=== PATIENT | female | born 1955 | race Caucasian/White ===

== ENCOUNTER 2019-09-01 06:50 | Day surgery (SDC) | payer BC ==
--- NOTE | 2019-08-24 16:00 | HP ---
CC: Dr. Marga Wade; Dr. Echo Elizondo * PREOPERATIVE HISTORY AND PHYSICAL: DATE OF ADMISSION/SURGERY: 09/01/19 - [facility] This patient is scheduled for same-day surgery admission by Dr. Wade on Wednesday , 09/01/19. DATE OF PREOPERATIVE HISTORY AND PHYSICAL EXAMINATION: , 08/24/19. ATTENDING SURGEON: Dr. Marga Wade * (dictated by Aretha Pacheco NP). CHIEF COMPLAINT: Atypical ductal papillomatosis, left breast. HISTORY OF PRESENT ILLNESS: The patient is a 64-year-old female who had a stress test in a spring that was reportedly normal, but which showed an incidental finding in the left breast. This prompted imaging that demonstrated a nodule in the left breast. A left breast ultrasound was done to attempt biopsy, but the ultrasound found that the nodule was the same as the nodule biopsied in 2007, so the ultrasound-guided left breast biopsy was cancelled. She then underwent an MRI of the breast and a large area of non-mass enhancement in the left breast was identified with washout kinetics suspicious for malignancy and additional satellite lesions, so MR biopsy of the left breast was done and showed atypical ductal papillomatosis and excision has been advised. Additionally, there was a 6 mm nodule in the right breast with suspicious kinetics and that was also biopsied and showed atypical lobular hyperplasia with benign breast tissue including the usual ductal hyperplasia, so no further treatment other than followup has been advised for that. The patient has been unaware of any breast changes, she denies nipple discharge. She has never had radiation to the chest; she has undergone biopsies of the left breast in the past. She has a family history of breast cancer in a maternal aunt who had it diagnosed at age 76, and a family history of ovarian cancer in a different maternal aunt who had it diagnosed in her 70s. The patient herself was on control pills from age 17 to age 29 and then on medroxyprogesterone for about a year. She was age 10 or 11 when she had her first menstrual period, 34 with the of her first child, and does not recall when she went through menopause other than it was an early menopause. Dr. Wade has examined the patient and reviewed the above findings with her and has recommended needle localization excision of the left breast imaging abnormality and described the nature of the surgical procedure, the rationale for the procedure, the relevant risks and benefits, and today, I reviewed the typical postoperative care and recovery. The patient has had a chance to ask questions and stated that she understands the information and is satisfied with the answers given to her questions. She will sign surgical consent on the day of surgery. PAST MEDICAL HISTORY: Significant for insulin-dependent diabetes, hypertension , morbid obesity, osteoarthritis, depression, thyroid cancer, and macular degeneration resulting in significantly diminished vision. PAST SURGICAL HISTORY: Ductogram of the left breast many years ago by Dr. Wade, section, completion thyroidectomy for malignancy at [facility], right ankle surgery for fracture, bilateral cataract extraction, D and C. MEDICATIONS: 1. Aspirin 81 mg p.o. daily, which she will hold for 5 days preoperatively. 2. Calcitriol 0.5 mcg 1 tablet 3 times a day. 3. Levothyroxine 200 mcg 1 tablet daily. 4. Pentasa 500 mg 1 tablet by mouth b.i.d. 5. NovoLog FlexPen 100 units per mL sliding scale as directed. 6. Omeprazole 20 mg p.o. daily. 7. Lantus 100 units per mL 72 units daily at bedtime. 8. Furosemide 40 mg 1-1/2 tablets by mouth daily. 9. Sertraline 25 mg by mouth daily. 10. Victoza 18 mg/3 mL 1.8 mL daily in the morning. 11. Ramipril 10 mg p.o. daily. 12. Simvastatin 20 mg p.o. daily. ALLERGIES: CYTOTEC caused severe diarrhea. FAMILY HISTORY: No known anesthesia complications, bleeding tendencies, or clotting disorders. Maternal aunt diagnosed with breast cancer at age 76 and a different maternal aunt diagnosed with ovarian cancer in her 70s. SOCIAL HISTORY: She is . She quit smoking 18 years ago. She does not drink alcohol or use other substances. She does drink diet coke. REVIEW OF SYSTEMS: General: No previous anesthesia complications. No history of deep vein thrombosis or pulmonary embolism, although she does have venous stasis of both lower extremities. No bleeding tendencies or blood transfusions. Constitutional: No fevers or chills or excessive fatigue. Endocrine: Insulin-dependent diabetes. Fingersticks at home are usually less than 130. Recent hemoglobin A1c is 7.1, down from 7.6. She is status post total thyroidectomy. Breasts: As described in history of present illness. Respiratory: No dyspnea on exertion. No chronic cough. Cardiovascular: No anginal chest pain or palpitations or history of myocardial infarction. Gastrointestinal: No nausea, vomiting, diarrhea, GI bleeding, or chronic constipation. Genitourinary: No dysuria. Musculoskeletal: Osteoarthritis in most joints. Integumentary: Venous stasis of both lower extremities with associated skin changes, but no open ulcerations. Neurologic: No headache or blurred vision. She does experience some numbness in her fingertips. Her gait is steady. Psychiatric: No reported anxiety or insomnia. She is on an antidepressant. PHYSICAL EXAMINATION GENERAL SURVEY: The patient is a 64-year-old morbidly obese female, in no acute distress. VITAL SIGNS: Height 61.25 inches, weight 306 pounds, body mass index 57.3. Blood pressure 130/76, pulse 72 and regular, respiratory rate 16, temperature 97 tympanic. HEENT: Benign. NECK: Supple. Well-healed surgical scar anterior neck. No cervical lymphadenopathy. She also has a fabiana on the anterior neck in the supraclavicular region on the left. LUNGS: Breath sounds bilaterally clear and equal. HEART: Regular rate and rhythm. No murmurs or rubs appreciated. BREASTS: Appear slightly asymmetric. There is some visible scarring around the nipple in the right breast and the left breast is a little smaller than the right. Both nipples are flat. There is no cervical, supraclavicular, or axillary adenopathy. Palpation of the right breast reveals no discrete masses. Palpation of the left breast reveals some nodularity in the region of the biopsy site; the biopsy site is clean and dry without evidence of infection. There is no ecchymosis. ABDOMEN: Obese, soft, nondistended, and nontender. Exam is limited by body habitus, but no obvious masses. PELVIC: Exam deferred. RECTAL: Exam deferred. EXTREMITIES: Warm. Both lower extremities over the pretibial region have changes of venous stasis, but no open ulcerations. NEUROLOGIC: Alert and oriented x3. Steady gait. SKIN: Warm and dry; both lower extremities over the pretibial regions with changes of venous stasis, but no open ulcerations. IMPRESSION: Left breast imaging abnormality with associated biopsy showing atypical ductal papillomatosis. PLAN: Same-day surgery admission to Dr. Wade's service on 09/01/19, for needle localization excision of left breast imaging abnormality. BLANCA PACHECO, LIFE AGENT [id number]/[facility] #: [id number] [facility]
[~2019-09-01 06:50] MED LIST: Buffered Lidocaine 1% SYRIN* 1 ML/SYRINGE INTRADERM ONE; Lactated Ringers 1000 ML Bag* 1,000 ML IV SCH
[2019-09-01] MEDS ORDERED: Lidocaine 2.5%/Prilocain 2.5%* 5 GM TUBE ONE (07:09)
[2019-09-01 07:53] LABS: BUN/Creatinine Ratio 30.1 (8-20); Calcium 8.8 mg/dL (8.6-10.3); EGFR African American 73.2 (>60); EGFR Non-African American 60.5 (>60); Potassium 4.4 mmol/L (3.5-5.0)
[2019-09-01] MEDS ORDERED: Heparin VIAL(*) 5000 UNITS/ML VIAL (FIVE THOUSAND) ONE (09:57)
[2019-09-01] MEDS ORDERED: ceFAZolin 2 GM PREMIX in ORs 2 GM/50 ML BAG ONE (09:57)
[2019-09-01] MEDS ORDERED: ceFAZolin 1 GM ADVAN(*) 1 GM ADDV.VIAL IVPB ONE (09:57)
[2019-09-01] MEDS ORDERED: Lidocaine 1% INJ* 10 MG/ML 30 ML SDV ONE (11:49)
[2019-09-01] MEDS ORDERED: Bupivacaine 0.25% EPI 200,000* 30 ML SDV ONE (11:50)
[2019-09-01] MEDS ORDERED: Bupivacaine 0.5%* 50 ML MDV VIAL ONE (11:50)
[2019-09-01] MEDS ORDERED: fentaNYL* 50 MCG/ML 2 ML VIAL (100 MCG VIAL) ONE (12:07)
[2019-09-01] MEDS ORDERED: Ondansetron INJ* 2 MG/ML VIAL ONE (12:07)
[2019-09-01] MEDS ORDERED: Dexamethasone IV* 4 MG/ML 1 ML (4 MG) ONE (12:07)
[2019-09-01] MEDS ORDERED: Ketorolac INJ* 30 MG/ML 1 ML VIAL ONE (12:07)
[2019-09-01] MEDS ORDERED: Midazolam* 1 MG/ML 2 ML VIAL (2 MG) ONE (12:07)
[2019-09-01] MEDS ORDERED: Propofol* 10 MG/ML 20 ML BTL ONE (12:07)
[2019-09-01] MEDS ORDERED: Metoclopramide IV* 5 MG/ML 2 ML VIAL ONE (12:07)
[2019-09-01] MEDS ORDERED: Acetaminophen TAB* 325 MG PO PRN (12:53)
[2019-09-01] MEDS ORDERED: Naloxone* 0.4 MG/ML 1 ML VIAL IV PRN (12:53)
--- NOTE | 2019-09-01 13:40 | BRIEFOPN ---
Brief Operative/Procedure Note - Operation Details Pre-Op Diagnosis: Left breast imaging abnormality Post-Op Diagnosis: Left breast imaging abnormality Procedures: Needle localization excision of left breast imaging abnormality Surgeon(s)/Proceduralists: Dr. Wade. Assist: Trace Luther Anesthesia: MAC Estimated Blood Loss: <50cc Findings: As above Specimen(s)/Culture(s) Description: Left breast tissue Complications: None
[2019-09-01 14:07] VITALS: BP 131/80
--- NOTE | 2019-09-01 20:17 | OP ---
CC: Dr. Echo Elizondo * DATE OF OPERATION: 09/01/19 - SDS DATE OF : 53 SURGEON: Dr. Wade. ASSISTANTS: ISIAH Luther and ISIAH Yu student. PRE-OP DIAGNOSIS: Left breast mammographic abnormality. POST-OP DIAGNOSIS: Left breast mammographic abnormality. OPERATIVE PROCEDURE: Needle localization excision of left breast mammographic abnormality. INDICATIONS: Ms. Ry Schofield is a 64-year-old woman, recently diagnosed with a mammographic abnormality that prompted the plan for surgical intervention. DESCRIPTION OF PROCEDURE: On the morning of surgery, she underwent needle localization without difficulty. She was then brought to the operating room. She was placed on the OR table in supine position and given IV sedation. The left breast was prepped and draped in usual sterile fashion, taking care not to dislodge the localizing wire. Then, a curvilinear elliptical incision encompassing the wire was made after infiltrating the skin with local anesthetic. Subcutaneous tissue was then divided with electrocautery to excise a mass of tissue from around the wire. This was then marked in the usual fashion and handed off as a specimen. The wound was inspected for hemostasis, which was achieved with electrocautery. The report eventually came back from Radiology that the specimen contained the abnormality and once hemostasis was achieved, closure was accomplished. This was done with 3-0 Vicryl in the subcutaneous layer and the skin was closed with 4-0 Prolene in the subcuticular fashion. Prior to closing, clips were placed in the cavity to fabiana its confines and additional local was instilled into the cavity. Steri-Strips and a dry sterile dressing were applied. All sponge and instrument counts were correct. The patient tolerated the procedure well and was transferred to Recovery in a stable condition. [id number]/[facility] #[facility] [id number] [facility]
== END 2019-09-01 14:47 | disposition home or self-care (01) ==
LOC: SDS 06:50
PROVIDERS: ATTEND Surgery
DX: D05.12 Intraductal carcinoma in situ of left breast (principal); E11.9 Type 2 diabetes mellitus without complications; Z79.4 Long term (current) use of insulin; I10 Essential (primary) hypertension; M19.90 Unspecified osteoarthritis, unspecified site; E66.01 Morbid (severe) obesity due to excess calories; Z68.43 Body mass index [BMI] 50.0-59.9, adult; Z87.891 Personal history of nicotine dependence; Z85.850 Personal history of malignant neoplasm of thyroid
CPT/HCPCS: 36415; 80048; 88307; 88360; A9270-GY; J0690; J1100; J1644; J1885; J2250; J2405; J2704; J2765; J3010; J3490

== ENCOUNTER 2020-02-29 17:49 | Inpatient (IN) ==
[2020-02-29 19:21] LABS: ABS Eosinophils 0.3 10^3/ul (0-0.6); ABS Monocytes 0.9 10^3/ul (0-0.8); ABS Neutrophils 7.3 10^3/ul (1.5-7.7); Eosinophil % 2.8 %; Hematocrit 34 % (35-47); Hemoglobin 11.7 g/dL (12.0-16.0); Mean Corpuscular HGB Conc 35 g/dL (31-36); Mean Corpuscular Hemoglobin 32 pg (27-31); Mean Corpuscular Volume 92 fL (80-97); Mean Platelet Volume 7.7 fL (7.4-10.4); Platelet Count 217 10^3/uL (150-450); Red Blood Count 3.71 10^6 /uL (3.70-4.87); Red Cell Distribution Width 14 % (10-15); White Blood Count 10.5 10^3/uL (3.5-10.8)
[2020-02-29 19:30] LABS: Activated Partial Thrombo Time 30.8 seconds (26.0-38.0)
[2020-02-29 19:41] LABS: ALT 11 U/L (7-52); AST 13 U/L (13-39); Albumin 3.2 g/dL (3.2-5.2); Alkaline Phosphatase 50 U/L (34-104); Anion Gap 6 mmol/L (2-11); BUN/Creatinine Ratio 20.9 (8-20); Blood Urea Nitrogen 19 mg/dL (6-24); C Reactive Protein 17.72 mg/L (<8.01); CO2 Carbon Dioxide 36 mmol/L (22-32); Calcium 8.9 mg/dL (8.6-10.3); Chloride 98 mmol/L (101-111); Creatine Kinase 66 U/L (10-223); EGFR African American 74.8 (>60); EGFR Non-African American 61.9 (>60); Globulin 3.3 g/dL (2-4); Glucose 159 mg/dL (70-100); Sodium 140 mmol/L (135-145); Total Protein 6.5 g/dL (6.4-8.9)
[2020-02-29 19:48] LABS: CKMB ng/mL 2.5 ng/mL (0.6-6.3); Troponin I 0.05 ng/mL (<0.03)
[2020-02-29] MEDS ORDERED: Iodixanol (CONTRAST) 320 MG/ML 100 ML SDV IV ONE (20:02)
[2020-02-29 21:46] LABS: Urine Appearance Clear; Urine Bilirubin Negative (Negative); Urine Blood Negative (Negative); Urine Color Yellow; Urine Glucose Negative (Negative); Urine Ketones Negative (Negative); Urine Nitrite Negative (Negative); Urine Protein Negative (Negative); Urine Specific Gravity 1.045 (1.010-1.030); Urine Urobilinogen Negative (Negative)
[2020-02-29] MEDS ORDERED: Furosemide 40 mg/4 ml IV VIAL IV SLOW PU ONE (22:20)
[2020-02-29] MEDS: Enoxaparin 40 MG/0.4 ML SYR SUBCUT SCH (23:24)
[2020-02-29 23:37] LABS: Troponin I 0.05 ng/mL (<0.03)
[2020-03-01 00:06] LABS: TSH Ultra Thyroid Stim Horm 0.57 mcIU/mL (0.34-5.60)
[2020-03-01 00:10] LABS: Free T4 1.29 ng/dL (0.61-1.12)
[2020-03-01 02:03] LABS: Troponin I 0.05 ng/mL (<0.03)
[2020-03-01 06:35] LABS: ABS Eosinophils 0.3 10^3/ul (0-0.6); ABS Lymphocytes 1.8 10^3/ul (1.0-4.8); ABS Monocytes 0.6 10^3/ul (0-0.8); ABS Neutrophils 4.8 10^3/ul (1.5-7.7); Eosinophil % 4.1 %; Hematocrit 34 % (35-47); Hemoglobin 11.6 g/dL (12.0-16.0); Lymphocyte % 24.1 %; Mean Corpuscular HGB Conc 34 g/dL (31-36); Mean Corpuscular Hemoglobin 32 pg (27-31); Mean Corpuscular Volume 93 fL (80-97); Mean Platelet Volume 7.8 fL (7.4-10.4); Nucleated Red Blood Cells % 0.1; Platelet Count 202 10^3/uL (150-450); Red Blood Count 3.65 10^6 /uL (3.70-4.87); Red Cell Distribution Width 14 % (10-15); White Blood Count 7.6 10^3/uL (3.5-10.8)
[2020-03-01 06:59] LABS: BUN/Creatinine Ratio 23.8 (8-20); Calcium 8.4 mg/dL (8.6-10.3); EGFR African American 82.1 (>60); EGFR Non-African American 67.8 (>60); Potassium 3.8 mmol/L (3.5-5.0)
[2020-03-01] MEDS: CMC:Cyclosporine 0.05% OPHTH (NF) 0.4 ML VIAL BOTH EYES SCH ×2 (08:42→20:06)
[2020-03-01] MEDS: Aspirin EC 81 mg TAB.EC (enteric coated) PO SCH (08:43)
[2020-03-01] MEDS: Liraglutide (NF) 18 MG/3 ML SUBCUT SCH (08:46)
[2020-03-01] MEDS: CMC:Mesalamine 500 mg CAP (NF) PO SCH ×2 (10:38→20:06)
[2020-03-01] MEDS: Collagenase 250 units/gm OINT 1 tube TOPICAL SCH ×2 (11:08→20:07)
[2020-03-01] MEDS ORDERED: Perflutren Lipid Microsphere 3 ML VIAL ONE (11:25)
[2020-03-01] MEDS: CMC:Simvastatin 20 mg TAB (NF) PO SCH (17:23)
[2020-03-01] MEDS: Insulin GLARGINE 100 un/ml 10 ml VIAL SUBCUT SCH (17:23)
[2020-03-01] MEDS: Enoxaparin 40 MG/0.4 ML SYR SUBCUT SCH (20:07)
[2020-03-02 05:32] LABS: BUN/Creatinine Ratio 27.2 (8-20); Calcium 9.4 mg/dL (8.6-10.3); EGFR African American 85.6 (>60); EGFR Non-African American 70.7 (>60); Potassium 4.3 mmol/L (3.5-5.0)
[2020-03-02] MEDS ORDERED: Furosemide 40 mg/4 ml IV VIAL IV SLOW PU SCH (09:00)
[2020-03-02] MEDS: Aspirin EC 81 mg TAB.EC (enteric coated) PO SCH (09:30)
[2020-03-02] MEDS: CMC:Mesalamine 500 mg CAP (NF) PO SCH ×2 (09:30→20:51)
[2020-03-02] MEDS: CMC:Cyclosporine 0.05% OPHTH (NF) 0.4 ML VIAL BOTH EYES SCH ×2 (09:30→20:48)
[2020-03-02] MEDS: Collagenase 250 units/gm OINT 1 tube TOPICAL SCH ×2 (09:30→20:51)
[2020-03-02] MEDS: Liraglutide (NF) 18 MG/3 ML SUBCUT SCH (11:24)
[2020-03-02] MEDS: Insulin GLARGINE 100 un/ml 10 ml VIAL SUBCUT SCH (17:36)
[2020-03-02] MEDS: CMC:Simvastatin 20 mg TAB (NF) PO SCH (17:42)
[2020-03-02] MEDS: Enoxaparin 40 MG/0.4 ML SYR SUBCUT SCH (20:50)
[2020-03-03] MEDS ORDERED: Piperacillin/Tazobac ADVAN 3.375 GM in NS 0.9% 100 ml BAG 100 ML IVPB ONE (08:39)
[2020-03-03] MEDS ORDERED: Furosemide 100 mg/10 ml IV VIAL ONE (08:49)
[2020-03-03] MEDS ORDERED: Zosyn per Pharmacy NOTE FOLLOW UP SCH (09:00)
[2020-03-03] MEDS: Aspirin EC 81 mg TAB.EC (enteric coated) PO SCH (09:01)
[2020-03-03] MEDS: CMC:Mesalamine 500 mg CAP (NF) PO SCH ×2 (09:02→21:01)
[2020-03-03] MEDS: Collagenase 250 units/gm OINT 1 tube TOPICAL SCH ×2 (09:04→21:02)
[2020-03-03] MEDS: CMC:Cyclosporine 0.05% OPHTH (NF) 0.4 ML VIAL BOTH EYES SCH ×2 (09:04→20:57)
[2020-03-03] MEDS: Liraglutide (NF) 18 MG/3 ML SUBCUT SCH (09:04)
[2020-03-03] MEDS: Furosemide 40 mg/4 ml IV VIAL IV SLOW PU SCH (09:04)
[2020-03-03 09:33] LABS: Magnesium 1.5 mg/dL (1.9-2.7); Potassium 4.1 mmol/L (3.5-5.0)
[2020-03-03 09:39] LABS: BUN/Creatinine Ratio 31.9 (8-20); EGFR Non-African American 85.1 (>60)
[2020-03-03] MEDS: ZOSYN 3.375 GM Q8H per EXTENDED INFUSION IV SCH ×2 (12:53→21:01)
[2020-03-03] MEDS ORDERED: Magnesium Sulfate 2 gm BAG 2 GM/50 ML BAG IVPB ONE (13:00)
[2020-03-03] MEDS: CMC:Simvastatin 20 mg TAB (NF) PO SCH (17:56)
[2020-03-03] MEDS: Insulin GLARGINE 100 un/ml 10 ml VIAL SUBCUT SCH (17:58)
[2020-03-03] MEDS: Enoxaparin 40 MG/0.4 ML SYR SUBCUT SCH (21:02)
[2020-03-04] MEDS: ZOSYN 3.375 GM Q8H per EXTENDED INFUSION IV SCH ×3 (04:49→21:30)
[2020-03-04 07:19] LABS: BUN/Creatinine Ratio 25.8 (8-20); Calcium 9.1 mg/dL (8.6-10.3); EGFR Non-African American 60.3 (>60); Magnesium 1.7 mg/dL (1.9-2.7); Potassium 4.1 mmol/L (3.5-5.0)
[2020-03-04] MEDS ORDERED: Magnesium Sulfate 2 gm BAG 2 GM/50 ML BAG IVPB ONE (07:30)
[2020-03-04] MEDS: Furosemide 40 mg/4 ml IV VIAL IV SLOW PU SCH (09:10)
[2020-03-04] MEDS: CMC:Cyclosporine 0.05% OPHTH (NF) 0.4 ML VIAL BOTH EYES SCH ×2 (09:10→21:31)
[2020-03-04] MEDS: Aspirin EC 81 mg TAB.EC (enteric coated) PO SCH (09:12)
[2020-03-04] MEDS: CMC:Mesalamine 500 mg CAP (NF) PO SCH ×2 (09:13→21:31)
[2020-03-04] MEDS: Liraglutide (NF) 18 MG/3 ML SUBCUT SCH (09:15)
[2020-03-04] MEDS: Collagenase 250 units/gm OINT 1 tube TOPICAL SCH ×2 (09:25→21:31)
[2020-03-04] MEDS: Insulin GLARGINE 100 un/ml 10 ml VIAL SUBCUT SCH (17:15)
[2020-03-04] MEDS: CMC:Simvastatin 20 mg TAB (NF) PO SCH (17:16)
[2020-03-04] MEDS: Enoxaparin 40 MG/0.4 ML SYR SUBCUT SCH (21:30)
[2020-03-05] MEDS: ZOSYN 3.375 GM Q8H per EXTENDED INFUSION IV SCH ×2 (05:29→14:19)
[2020-03-05 08:50] LABS: Calcium 9.3 mg/dL (8.6-10.3); EGFR Non-African American 60.3 (>60); Magnesium 1.6 mg/dL (1.9-2.7); Potassium 4.2 mmol/L (3.5-5.0)
[2020-03-05] MEDS: CMC:Mesalamine 500 mg CAP (NF) PO SCH (09:03)
[2020-03-05] MEDS: CMC:Cyclosporine 0.05% OPHTH (NF) 0.4 ML VIAL BOTH EYES SCH (09:03)
[2020-03-05] MEDS: Aspirin EC 81 mg TAB.EC (enteric coated) PO SCH (09:05)
[2020-03-05] MEDS: Liraglutide (NF) 18 MG/3 ML SUBCUT SCH (09:05)
[2020-03-05] MEDS ORDERED: Magnesium Sulfate IV 3 GM in NS 0.9% 100 ml BAG 100 ML IVPB ONE (10:30)
[2020-03-05] MEDS: Collagenase 250 units/gm OINT 1 tube TOPICAL SCH (10:46)
[2020-03-05 15:32] VITALS: BP 136/44
== END 2020-03-05 17:09 | disposition home health service (06) | DRG 194 ==
LOC: MEDTELE 17:49 → ED 17:49 → MEDTELE 22:30
PROVIDERS: ADMIT Internal Medicine; ATTEND Internal Medicine

== ENCOUNTER 2021-11-06 11:21 | Inpatient (IN) ==
[2021-11-06] MEDS ORDERED: NS 0.9% 500 ml BAG 500 ML IV ONE (12:22)
[2021-11-06] MEDS ORDERED: Diltiazem IV push/loading dose 5 MG/ML 5 ML vial (25 mg) IV SLOW PU ONE (12:23)
[2021-11-06 12:32] LABS: INR 1.31 (0.86-1.15)
[2021-11-06 12:33] LABS: ABS Eosinophils 0.1 10^3/ul (0-0.6); ABS Lymphocytes 1.4 10^3/ul (1.0-4.8); ABS Monocytes 0.6 10^3/ul (0-0.8); ABS Neutrophils 9.6 10^3/ul (1.5-7.7); Eosinophil % 0.8 %; Hematocrit 38 % (35-47); Hemoglobin 12.2 g/dL (12.0-16.0); Lymphocyte % 11.8 %; Mean Corpuscular HGB Conc 33 g/dL (31-36); Mean Corpuscular Hemoglobin 29 pg (27-31); Mean Corpuscular Volume 89 fL (80-97); Mean Platelet Volume 7.9 fL (7.4-10.4); Nucleated Red Blood Cells % 0.1; Platelet Count 225 10^3/uL (150-450); Red Blood Count 4.22 10^6 /uL (3.70-4.87); Red Cell Distribution Width 15 % (10-15); White Blood Count 11.8 10^3/uL (3.5-10.8)
[2021-11-06 12:56] LABS: Albumin 3.5 g/dL (3.2-5.2); Albumin/Globulin Ratio 1.1 (1-3); Calcium 9.4 mg/dL (8.6-10.3); Globulin 3.3 g/dL (2-4); Potassium 4.2 mmol/L (3.5-5.0); Total Bilirubin 0.6 mg/dL (0.2-1.0); Total Protein 6.8 g/dL (6.4-8.9); eGFR CKD-EPI 42.7 (>60)
[2021-11-06 13:54] LABS: Magnesium 1.5 mg/dL (1.9-2.7)
[2021-11-06] MEDS ORDERED: Azithromycin 500 mg/250 ml NS 500 MG/250 ML BAG IVPB ONE (13:57)
[2021-11-06] MEDS ORDERED: cefTRIAXone 1 gm/50 mL NS BAG 1 GM/50 ML BAG IV ONE (13:57)
[2021-11-06] MEDS ORDERED: Heparin 5000 UNITS/ML 1 mL VIAL IV SCH (15:00)
[2021-11-06] MEDS ORDERED: Heparin DRIP 25,000 UNITS BAG 25,000 UNITS/500 ML BAG IV SCH (15:00)
[2021-11-06] MEDS ORDERED: Dextrose 50% Syringe 50 ml 25 GM/50 ML SYRINGE IV PUSH PRN ×2 (15:42→16:50)
[2021-11-06] MEDS ORDERED: Magnesium Sulfate IV 3 GM in NS 0.9% 100 ml BAG 100 ML IVPB ONE (15:52)
[2021-11-06] MEDS ORDERED: Magnesium Sulfate 2 GM IV (Premix) IVPB ONE (16:00)
[2021-11-06 16:09] LABS: ABS Eosinophils 0.1 10^3/ul (0-0.6); ABS Lymphocytes 2.3 10^3/ul (1.0-4.8); ABS Monocytes 0.8 10^3/ul (0-0.8); ABS Neutrophils 7.3 10^3/ul (1.5-7.7); Eosinophil % 0.8 %; Hematocrit 36 % (35-47); Hemoglobin 11.9 g/dL (12.0-16.0); Lymphocyte % 21.5 %; Mean Corpuscular HGB Conc 33 g/dL (31-36); Mean Corpuscular Hemoglobin 29 pg (27-31); Mean Corpuscular Volume 90 fL (80-97); Mean Platelet Volume 7.8 fL (7.4-10.4); Platelet Count 208 10^3/uL (150-450); Red Blood Count 4.03 10^6 /uL (3.70-4.87); Red Cell Distribution Width 15 % (10-15); White Blood Count 10.5 10^3/uL (3.5-10.8)
[2021-11-06 16:39] LABS: eGFR CKD-EPI 45.9 (>60)
[2021-11-06] MEDS ORDERED: Magnesium Sulf 1 GM/100ML BAG IV ONE (17:00)
[2021-11-06] MEDS ORDERED: Insulin GLARGINE 100 un/ml 10 ml VIAL SUBCUT SCH (21:00)
[2021-11-07 05:20] LABS: ABS Basophils 0.1 10^3/ul (0-0.2); ABS Eosinophils 0.2 10^3/ul (0-0.6); ABS Lymphocytes 2.9 10^3/ul (1.0-4.8); ABS Neutrophils 5.4 10^3/ul (1.5-7.7); Eosinophil % 2.3 %; Hematocrit 37 % (35-47); Hemoglobin 12.1 g/dL (12.0-16.0); Lymphocyte % 30.5 %; Mean Corpuscular HGB Conc 33 g/dL (31-36); Mean Corpuscular Hemoglobin 29 pg (27-31); Mean Corpuscular Volume 90 fL (80-97); Mean Platelet Volume 7.6 fL (7.4-10.4); Nucleated Red Blood Cells % 0.1; Platelet Count 220 10^3/uL (150-450); Red Blood Count 4.14 10^6 /uL (3.70-4.87); Red Cell Distribution Width 15 % (10-15); White Blood Count 9.6 10^3/uL (3.5-10.8)
[2021-11-07 05:51] LABS: Calcium 8.9 mg/dL (8.6-10.3); HDL Cholesterol 32.2 mg/dL; Potassium 4.1 mmol/L (3.5-5.0); eGFR CKD-EPI 48.2 (>60)
[2021-11-07] MEDS: Venlafaxine XR 75 mg PO SCH (08:49)
[2021-11-07] MEDS: CMCS: Simvastatin 20 mg TAB (NF) PO SCH (08:50)
[2021-11-07] MEDS: Fluticasone NASAL SPRAY 50MCG 16 gm SPRAY BTL INTRANASAL SCH (08:50)
[2021-11-07] MEDS ORDERED: Aspirin EC 81 mg TAB.EC (enteric coated) PO SCH (09:00)
[2021-11-07] MEDS ORDERED: cefTRIAXone 1 gm/50 mL NS BAG 1 GM/50 ML BAG IVPB SCH (14:00)
[2021-11-07] MEDS ORDERED: Perflutren Lipid Microsphere 3 ML VIAL ONE (14:43)
[2021-11-07] MEDS ORDERED: Azithromycin 500 mg/250 ml NS 500 MG/250 ML BAG IVPB SCH (16:00)
[2021-11-07] MEDS ORDERED: Ondansetron 4 mg VIAL 2 MG/ML 2 ml VIAL IV ONE (20:52)
[2021-11-07] MEDS ORDERED: Insulin GLARGINE 100 un/ml 10 ml VIAL SUBCUT SCH (21:00)
[2021-11-08 07:13] LABS: ABS Eosinophils 0.2 10^3/ul (0-0.6); ABS Lymphocytes 2.3 10^3/ul (1.0-4.8); ABS Monocytes 0.9 10^3/ul (0-0.8); ABS Neutrophils 6.2 10^3/ul (1.5-7.7); Eosinophil % 1.8 %; Hematocrit 38 % (35-47); Hemoglobin 12.4 g/dL (12.0-16.0); Lymphocyte % 23.8 %; Mean Corpuscular HGB Conc 33 g/dL (31-36); Mean Corpuscular Hemoglobin 30 pg (27-31); Mean Corpuscular Volume 91 fL (80-97); Mean Platelet Volume 8.3 fL (7.4-10.4); Nucleated Red Blood Cells % 0.1; Platelet Count 211 10^3/uL (150-450); Red Blood Count 4.16 10^6 /uL (3.70-4.87); Red Cell Distribution Width 15 % (10-15); White Blood Count 9.6 10^3/uL (3.5-10.8)
[2021-11-08 07:31] LABS: Calcium 8.8 mg/dL (8.6-10.3); Magnesium 1.8 mg/dL (1.9-2.7); eGFR CKD-EPI 49.6 (>60)
[2021-11-08] MEDS: Fluticasone NASAL SPRAY 50MCG 16 gm SPRAY BTL INTRANASAL SCH (10:31)
[2021-11-08] MEDS: Venlafaxine XR 75 mg PO SCH (10:31)
[2021-11-08] MEDS: CMCS: Simvastatin 20 mg TAB (NF) PO SCH (10:33)
[2021-11-08 14:26] VITALS: BP 106/58
== END 2021-11-08 15:35 | disposition home or self-care (01) | DRG 201 ==
LOC: ED 11:21 → MERGE 11:21 → EDHOLD 15:34 → MEDTELE 17:24
PROVIDERS: ADMIT Internal Medicine; ATTEND Internal Medicine

== ENCOUNTER 2024-07-06 08:36 | Inpatient (IN) ==
[2024-07-06] MEDS ORDERED: Magnesium Hydroxide LIQ 30 ML UDC PO PRN (12:50)
[2024-07-06] MEDS ORDERED: Senna TAB 8.6 mg TAB PO PRN (12:50)
[2024-07-06] MEDS ORDERED: Dextrose 50% Syringe 50 ml 25 GM/50 ML SYRINGE IV PUSH PRN (13:04)
[2024-07-06] MEDS: Nystatin TOP POWDER 15 GM BTL TOPICAL SCH (20:59)
[2024-07-06 23:49] LABS: Urine Appearance Turbid; Urine Bilirubin Negative (Negative); Urine Blood 2+ (Negative); Urine Color Light-Yellow; Urine Glucose Negative (Negative); Urine Ketones Negative (Negative); Urine Nitrite 1+ (Negative); Urine Protein Negative (Negative); Urine Urobilinogen Negative (Negative)
[2024-07-07 00:33] LABS: Urine Bacteria 2+ /HPF (Absent); Urine Red Blood Cell 2+(6-10/hpf) /HPF (0-Trace); Urine Squamous Epithelial Cell Present /HPF (Absent); Urine White Blood Cell 3+(>20/hpf) /HPF (0-Trace)
[2024-07-07 06:51] LABS: ABS Eosinophils 0.5 10^3/uL (0.0-0.5); ABS Lymphocytes 1.9 10^3/uL (1.0-4.8); ABS Monocytes 1.1 10^3/uL (0.0-0.9); ABS Neutrophils 9.7 10^3/uL (1.5-7.6); Eosinophil % 3.7 %; Hematocrit 38.4 % (35-45); Hemoglobin 12.9 g/dL (11.5-14.3); Lymphocyte % 14.6 %; Mean Corpuscular Hemoglobin 31.5 pg (27-33); Mean Corpuscular Hgb Conc 33.7 g/dL (31-36); Mean Corpuscular Volume 93.5 fL (80-97); Mean Platelet Volume 7.5 fL (7.5-11.2); Platelet Count 257 10^3/uL (150-450); Red Cell Distribution Width 13.9 % (12-17); White Blood Count 13.2 10^3/uL (3.8-11.8)
[2024-07-07 07:45] LABS: Albumin 3.3 g/dL (3.2-5.2); Albumin/Globulin Ratio 1.1 (1-3); Calcium 8.6 mg/dL (8.6-10.3); Creatinine, Serum 0.87 mg/dL (0.51-0.95); Potassium 3.6 mmol/L (3.5-5.0); Total Bilirubin 0.6 mg/dL (0.2-1.0); Total Protein 6.3 g/dL (6.4-8.9); eGFR CKD-EPI 71.6 (>60)
[2024-07-07] MEDS: Venlafaxine XR 75 mg PO SCH (07:59)
[2024-07-07] MEDS: Amoxicillin/Clavul 875/125 TAB (Augmentin 875 tab) PO SCH (20:17)
[2024-07-07] MEDS: Insulin GLARGINE 100 un/ml 10 ml VIAL SUBCUT SCH (21:06)
[2024-07-08] MEDS: Insulin GLARGINE 100 un/ml 10 ml VIAL SUBCUT SCH (20:00)
[2024-07-09] MEDS: Nitrofurantoin (monohydrate/macrocrystals) 100 mg CAP PO SCH (19:25)
[2024-07-10] MEDS: Insulin GLARGINE 100 un/ml 10 ml VIAL SUBCUT SCH (20:58)
[2024-07-14 06:56] LABS: ABS Eosinophils 0.4 10^3/uL (0.0-0.5); ABS Lymphocytes 2.2 10^3/uL (1.0-4.8); ABS Monocytes 0.7 10^3/uL (0.0-0.9); Eosinophil % 4.4 %; Lymphocyte % 23.6 %; Mean Corpuscular Hemoglobin 31.1 pg (27-33); Mean Corpuscular Hgb Conc 33.3 g/dL (31-36); Mean Corpuscular Volume 93.5 fL (80-97); Mean Platelet Volume 8.1 fL (7.5-11.2); Platelet Count 242 10^3/uL (150-450); Red Blood Count 4.17 10^6/uL (3.63-4.92); Red Cell Distribution Width 13.8 % (12-17); White Blood Count 9.5 10^3/uL (3.8-11.8)
[2024-07-14 07:11] LABS: Albumin 3.5 g/dL (3.2-5.2); Albumin/Globulin Ratio 1.2 (1-3); Calcium 8.2 mg/dL (8.6-10.3); Creatinine, Serum 0.94 mg/dL (0.51-0.95); Globulin 2.9 g/dL (2-4); Potassium 3.8 mmol/L (3.5-5.0); Total Bilirubin 0.4 mg/dL (0.2-1.0); Total Protein 6.4 g/dL (6.4-8.9); eGFR CKD-EPI 65.3 (>60)
[2024-07-14] MEDS: Insulin GLARGINE 100 un/ml 10 ml VIAL SUBCUT SCH (21:15)
[2024-07-16] MEDS: Insulin GLARGINE 100 un/ml 10 ml VIAL SUBCUT SCH (20:40)
[2024-07-18 05:44] VITALS: BP 128/70
[2024-07-18] MEDS ORDERED: Insulin GLARGINE 100 un/ml 10 ml VIAL SUBCUT SCH (21:00)
== END 2024-07-18 14:20 | disposition home or self-care (01) | DRG 65 ==
LOC: PMRU 10:43
PROVIDERS: ADMIT Physical Medicine & Rehabilitation; ATTEND Physical Medicine & Rehabilitation